=== PATIENT | male | born 1955 ===

== ENCOUNTER → 2018-08-31 | Outpatient (CLI) | payer OTHER | END | disposition home or self-care (01) | LOC: NUCLEAR 11:12 | DX: I87.2 Venous insufficiency (chronic) (peripheral) (principal); I70.213 Atherosclerosis of native arteries of extremities with intermittent claudication, bilateral legs ==

== ENCOUNTER 2018-09-14 10:47 | Outpatient (CLI) | payer OTHER | END 2018-09-14 11:00 | disposition home or self-care (01) | LOC: NUCLEAR 10:47 | DX: I73.9 Peripheral vascular disease, unspecified (principal); I87.2 Venous insufficiency (chronic) (peripheral) ==

== ENCOUNTER 2021-04-23 08:31 | Outpatient (CLI) | payer OTHER | END 2021-04-23 08:34 | disposition home or self-care (01) | LOC: SONOGRAMA 08:31 | PROVIDERS: ATTEND Pathology Anatomic Pathology & Clinical Pathology | DX: D49.0 Neoplasm of unspecified behavior of digestive system (principal) ==

== ENCOUNTER 2023-05-12 12:50 | Outpatient (CLI) | payer OTHER | END 2023-05-12 12:53 | disposition home or self-care (01) | LOC: SONOGRAMA 12:50 | PROVIDERS: ATTEND Pathology Anatomic Pathology & Clinical Pathology | DX: D11.0 Benign neoplasm of parotid gland (principal) ==